=== PATIENT | male | born 1990 | race African-American/Black ===

== ENCOUNTER 2019-09-01 08:31 | Emergency (ER) | payer OTHER, SELFPAY ==
[2019-09-01 09:10] VITALS: BP 145/91; PULSE 108; RESP 20; TEMP 37.3; O2SAT 100
--- NOTE | 2019-09-01 09:23 | ED.GENADULT ---
HPI - General Adult General Chief complaint: Nausea/Vomiting/Diarrhea Stated complaint: Flu like Symptoms Time Seen by Provider: 09/01/19 09:37 Source: patient Mode of arrival: ambulatory Limitations: no limitations History of Present Illness HPI narrative: 29-year-old male patient presents to the [facility] with complaints of cold symptoms. Patient states that her symptoms mostly started yesterday. Patient states he has had a runny nose, stuffy nose, sore throat, coughing, fevers that he has measured at home as high as 102. Patient states he just overall is not feeling well. Patient states he is also had some nausea vomiting and diarrhea but denies any severe abdominal pain. Patient states that he did not get a flu shot this year. Patient states he did try taking some Mucinex for his symptoms last night. Patient states that he tried to drink some orange juice today to get the vitamin C and states that right afterwards he threw it up so has not been able to keep down any food or fluids today. Related Data Allergies Allergy/AdvReac Type Severity Reaction Status Date / Time Penicillins Allergy Unknown Verified 09/01/19 09:18 Review of Systems Review of Systems: Narrative: CONSTITUTIONAL: Positive subjective fever, body aches, chills, and sweats. EYES: Denies visual changes, redness, or discharge. ENT: Positive rhinorrhea, congestion, sore throat, denies otalgia. CARDIOVASCULAR: Denies chest pain, palpitations, or edema. RESPIRATORY: Positive cough, denies dyspnea. GASTROINTESTINAL: Denies abdominal pain, positive nausea, vomiting, and diarrhea. GENITOURINARY: Denies dysuria or hematuria. SKIN: Denies rash or itching. MUSCULOSKELETAL: Denies back pain, joint pain, or myalgia. NEUROLOGIC: Denies headache, numbness, or weakness. PSYCHIATRIC: Denies anxiety or depression. PMFSH Comments At the time of my signature I agree with nursing past medical history, surgical, social, and family history. There is no relevant family history pertinent to the presenting complaint. Exam Narrative: Exam Narrative: GENERAL: ill-appearing, well-nourished, and in no acute distress. HEAD: Normocephalic, atraumatic. EYES: PERRLA and EOMI. ENT: Nares with erythema and edema noted bilaterally with the left nare swollen shut, clear rhinorrhea, no epistaxis. Mucous membranes moist. Posterior pharynx with slight erythema but no tonsil enlargement no exudates or lesions present. Bilateral TMs are clear no erythema or foreign bodies in the canal. NECK: Supple. No lymphadenopathy CHEST: Clear to auscultation. No respiratory distress. Patient able talk clear complete sentences. HEART: Regular rate and rhythm. No murmur heard. Normal peripheral pulses. ABDOMEN: Soft, flat, nondistended. No guarding, rebound tenderness, or rigid. No pulsatilla masses. Bowel sounds present in all four quadrants. No organomegaly. Negative Lawrence?s sign. No periumbicial tenderness. No Supra public tenderness or distension. Good femoral pulses bilaterally. No hernia noted. No scars or surface trauma. EXTREMITIES: Normal range of motion. No edema. SKIN: Warm, dry, no rash. NEURO: No focal deficits. Alert and oriented x3. Course Reevaluation(s) Reevaluation #1: Notify patient that he is negative today for influenza and strep. Discussed with patient that this is most likely some type of virus that is causing his symptoms. Discussed with him that we will discharge him home with some Zofran to help with the nausea and vomiting symptoms and he should continue to keep himself well-hydrated by increasing his fluids and getting plenty of rest. Discussed with patient that if his symptoms get worse and he continues to vomit despite the medication or he is having severe abdominal pain or he notices bright red blood or black tarry stools to the diarrhea then he would need to go the ER for further evaluation and treatment. Patient verbalized understanding denies any other questions or concerns at
[2019-09-01] MEDS: ONDANSETRON HCL ODT 4 MG TABLET PO (10:00)
== END 2019-09-01 10:30 | disposition home or self-care (01) ==
PROVIDERS: Emergency Provider Nurse Practitioner Family
DX: A08.4 Viral intestinal infection, unspecified (principal)
CPT/HCPCS: 87081; 87804; 87880; 99203; A9270; G0463

== ENCOUNTER 2019-09-03 08:43 | Emergency (ER) | payer BC, SELFPAY ==
[2019-09-03 08:56] VITALS: BP 143/105; PULSE 97; RESP 18; TEMP 37.2; O2SAT 99
--- NOTE | 2019-09-03 09:00 | ED.URI ---
HPI - URI/Sore Throat General Stated Complaint: sore throat Time Seen by Provider: 09/03/19 09:26 Source: patient and RN notes reviewed Mode of arrival: ambulatory Limitations: no limitations History of Present Illness HPI Narrative: 29-year-old male presents with concern for coughing, fever, general malaise. Reports he was seen several days ago and diagnosed with gastroenteritis and given Zofran. Reports he started coughing yesterday with sore throat that makes it difficult to swallow. MD elicited complaint: cough Review of Systems Review of Systems: Narrative: CONSTITUTIONAL: Reports malaise, chills, sweats, fever. EYES: Denies visual changes, redness, or discharge. ENT: Reports rhinorrhea, congestion, sore throat. Denies sinus pain, otalgia. CARDIOVASCULAR: Denies chest pain, palpitations, or edema. RESPIRATORY: Reports cough. Denies dyspnea. GASTROINTESTINAL: Denies abdominal pain, nausea, vomiting, diarrhea. Reports nausea and vomiting 2 days ago SKIN: Denies rash or itching. MUSCULOSKELETAL: Reports myalgia. NEUROLOGIC: Reports headache. All systems reviewed & are unremarkable except as noted in HPI and below PMFSH Comments At time of signature, agree with nursing past medical, surgical, social and family history. There is no relevant family history pertinent to the presenting complaint Exam Narrative: Exam Narrative: GENERAL: Well-appearing, well-nourished, and in no acute distress. HEAD: Normocephalic EYES: PERRLA, conjunctivae clear ENT: Nares clear, turbinates erythematous, clear discharge. Mucous membranes moist. TM pearly canas with dull light reflex bilaterally; no tragal tenderness. Oropharynx mildly erythematous without lesions. Tonsils not enlarged and without exudate, no drooling, no hoarseness, no trismus. NECK: Supple. No lymphadenopathy CHEST: Clear to auscultation, breath sounds equal. No wheezing, rhonchi, rales, or stridor. No respiratory distress, speaks in full sentences. HEART: Regular rate and rhythm. No murmur heard. Normal peripheral pulses. SKIN: Warm, clammy, no rash. NEURO: Alert and oriented x3. PSYCH: Normal mood and affect Course Course Emergency Course: Patient is aware of diagnosis, understands and agrees to treatment plan. Anticipatory guidance given. Patient agrees to follow-up as directed and is aware of reasons to seek care at the emergency department. Portions of this record may have been created with voice recognition software Vital Signs Vital signs: Vital Signs Temperature 99.0 F 09/03/19 08:56 Pulse Rate 97 09/03/19 08:56 Respiratory Rate 18 09/03/19 08:56 Blood Pressure 143/105 H 09/03/19 08:56 Pulse Oximetry 99 09/03/19 08:56 Temperature 99.0 F 09/03/19 08:56 Pulse Rate 97 09/03/19 08:56 Respiratory Rate 18 09/03/19 08:56 Blood Pressure 143/105 H 09/03/19 08:56 Pulse Oximetry 99 09/03/19 08:56 Reviewed. Pt has been instructed to follow up with his primary care provider within the next week regarding his elevated blood pressure today. MDM - URI/Sore Throat MDM Narrative Medical decision making narrative: Differential diagnosis considered: Strep pharyngitis, allergic rhinitis, upper respiratory tract infection, sinusitis, rhinosinusitis, nasopharyngitis. viral pharyngitis, otitis media, otitis externa, pneumonia, bronchitis, viral cough syndrome, viral syndrome, and influenza. Exam findings show no acute concerns or changes; patient is non-toxic appearing and is in no distress. Patient is appropriate for outpatient treatment and follow-up. Lab Data Labs: Strep Screen Presumptive Negative *(Reference Range: Negative)* Critical Care Time Critical Care Time Critical Care Time: No Discharge Plan Discharge Clinical Impression: Influenza-like illness Patient Disposition: Home, Self-Care Condition: Stable Instructions: Influenza (ED) Additional Instructions: Your rapid strep swab was negative today at
== END 2019-09-03 10:03 | disposition home or self-care (01) ==
PROVIDERS: Emergency Provider Nurse Practitioner
DX: J02.9 Acute pharyngitis, unspecified (principal); R05 Cough; R50.9 Fever, unspecified; R53.81 Other malaise
CPT/HCPCS: 87081; 87880; 99213; G0463